=== PATIENT | female | born 1960 | race Caucasian/White ===

== ENCOUNTER 2018-05-31 03:43 | Emergency (ER) | END 2018-05-31 05:36 | disposition home or self-care (01) ==

== ENCOUNTER 2019-01-16 01:58 | Emergency (ER) | payer OTHER ==
[~2019-01-16] VITALS: Wt 75.6 kg
[~2019-01-16 01:58] MED LIST: AZIT250T PO; BEN50 PO; CYCL10TA7 PO; HYDR-1666; IBUP-1542 PO; IBUP800T48 PO; PROM6.25 PO; TRIA15CR55 TOP
[2019-01-16] MEDS ORDERED: SOD CHLORIDE 0.9% 1,000 ML IV STA (02:56)
[2019-01-16] MEDS ORDERED: LORAZEPAM 2 MG INJ IV ONE (03:00)
[2019-01-16] MEDS ORDERED: DICYCLOMINE 20 MG INJ IM ONE (03:00)
--- NOTE | 2019-01-16 03:33 | ERD ---
ER Documentation Chief Complaint Chief Complaint reacting to new antibiotics. sob, feels like throat is closing HPI 58-year-old female presents with multiple complaints. She states that she was recently in the [facility]. When she got back she had an episode of persistent nausea and mild epigastric discomfort. She was seen in urgent care during which time she was started on Augmentin and Flagyl. Since then she is having loose or watery stools. Patient describes no significant foul odor. This morning the patient states that she has not been sleeping very well and became very anxious. She had a globus sensation in the back of her throat and noted shortness of breath. Patient does note some significant anxiety recently. She has not been able to sleep. No fevers or chills over the past 24 hours. No rash or itchiness, no lip swelling or tongue swelling. ROS All systems reviewed and are negative except as per history of present illness. Medications Home Meds Active Scripts Ondansetron (Ondansetron Odt) 4 Mg Tab.rapdis, 4 MG PO Q6H PRN for NAUSEA AND/OR VOMITING, #20 TAB Prov:CLAIRE QUIGLEY MD 01/16/19 Dicyclomine HCl (Dicyclomine HCl) 10 Mg Capsule, 10 MG PO TID PRN for ABDOMINAL CRAMPING, #20 CAP Prov:CLAIRE QUIGLEY MD 01/16/19 Ibuprofen* (Motrin*) 800 Mg Tab, 800 MG PO Q8 for 10 Days, #30 TAB 0 Refills Prov:AMAN ULLOA PA-C 02/22/16 Reported Medications Amoxicillin/Potassium Clav (Amox-Clav 875-125 mg Tablet) 875-125 mg Tab, 1 TAB PO BID for 7 Days 01/16/19 Metronidazole (Flagyl) 500 Mg Tab, 500 MG PO BID for 7 Days 01/16/19 Discontinued Reported Medications Hydrocodone Bit/Acetaminophen (Vicodin 5/500 Tablet) 1 Tab Tablet 09/04/12 Discontinued Scripts Diphenhydramine Hcl* (Benadryl*) 50 Mg Cap, 50 MG PO Q6H PRN for ITCHING/RASH, #30 CAP Prov:JOSE D MARKHAM MD 05/31/18 Triamcinolone Acetonide* (Kenalog*) 0.1%-15GM Cr, 1 APPLIC TOP BID for itch on body for 7 Days, #1 TUB Prov:JOSE D MARKHAM MD 05/31/18 Cyclobenzaprine Hcl* (Cyclobenzaprine Hcl*) 10 Mg Tablet, 10 MG PO TID for 5 Days, #15 TAB 0 Refills Prov:AMAN ULLOA PA-C 02/22/16 Ibuprofen* (Motrin*) 600 Mg Tab, 600 MG PO Q6, #14 TAB Prov:TAMMY RIDDLE MD 11/17/15 Promethazine w/Codeine* (Phenergan w/Codeine* Syrup) 5 Ml Syrup, 5 ML PO Q4H PRN for COUGH for 5 Days, ML 6 ounces Prov:TAMMY RIDDLE MD 11/17/15 Azithromycin* (Zithromax*) 250 Mg Tablet, 250 MG PO .ZPACK DIRECTED, #6 TAB TAKE 500 MG (2 TABS) THE FIRST DAY THEN 250 MG (1 TAB) DAYS 2-5 Prov:TAMMY RIDDLE MD 11/17/15 Allergies Allergies: Coded Allergies: Sulfa (Sulfonamide Antibiotics) (Unverified Allergy, Intermediate, 01/16/19) PMhx/Soc History of Surgery: No Anesthesia Reaction: No Hx Neurological Disorder: No Hx Respiratory Disorders: No Hx Cardiac Disorders: No Hx Psychiatric Problems: No Hx Miscellaneous Medical Probl: Yes (Kidney Stones, High Cholesterol) Hx Alcohol Use: No Hx Substance Use: No Hx Tobacco Use: No Physical Exam Vitals Vital Signs Date Temp Pulse Resp B/P (MAP) Pulse Ox O2 O2 Flow FiO2 Time Delivery Rate 01/16/19 98.0 74 20 169/91 100 02:01 (117) Physical Exam General: Well developed, well nourished, no acute distress, slightly anxious Head: Normocephalic, atraumatic. Eyes: Pupils equally reactive, EOM intact ENT: Moist mucous membranes, no lip swelling or tongue swelling, tolerating secretions Neck: Supple, no lymphadenopathy Respiratory: Lungs clear bilaterally, no distress Cardiovascular: RRR, no murmurs, rubs, or gallops Abdominal: Soft, non-tender, non-distended, no peritoneal signs : Deferred MSK: No edema, no unilateral swelling, 5/5 strength Neurologic: Alert and oriented, moving all extremities, normal speech, no focal weakness, no cerebellar signs Skin: No rash Psych: Normal mood Result Diagram: 01/16/19 0328 01/16/19 0328 Results 24 hrs Laboratory Tests Test 01/16/19 03:28 White Blood Count 8.3 10^3/ul Red Blood Count 4.13 10^6/ul Hemoglobin 11.5 g/dl Hematocrit 37.0 % Mean Corpuscular Volume 89.6 fl Mean Corpuscular Hemoglobin 27.8 pg Mean Corpuscular Hemoglobin Concent 31.1 g/dl Red Cell Distribution Width 13.5 % Platelet Count 520 10^3/UL Mean Platelet Volume 9.0 fl Immature Granulocytes % 0.200 % Neutrophils % 63.0 % Lymphocytes % 27.3 % Monocytes % 7.7 % Eosinophils % 1.4 % Basophils % 0.4 % Nucleated Red Blood Cells % 0.0 /100WBC Immature Granulocytes # 0.020 10^3/ul Neutrophils # 5.3 10^3/ul Lymphocytes # 2.3 10^3/ul Monocytes # 0.6 10^3/ul Eosinophils # 0.1 10^3/ul Basophils # 0.0 10^3/ul Nucleated Red Blood Cells # 0.0 10^3/ul Sodium Level 143 mmol/L Potassium Level 3.9 mmol/L Chloride Level 105 mmol/L Carbon Dioxide Level 30 mmol/L Anion Gap 8 Blood Urea Nitrogen 12 mg/dl Creatinine 0.74 mg/dl Est Glomerular Filtrat Rate mL/min > 60 mL/min Glucose Level 102 mg/dl Calcium Level 9.5 mg/dl Total Bilirubin 0.2 mg/dl Direct Bilirubin 0.00 mg/dl Indirect Bilirubin 0.2 mg/dl Aspartate Amino Transf (AST/SGOT) 26 IU/L Alanine Aminotransferase (ALT/SGPT) 33 IU/L Alkaline Phosphatase 75 IU/L Total Protein 6.8 g/dl Albumin 3.7 g/dl Globulin 3.10 g/dl Albumin/Globulin Ratio 1.19 Lipase 712 U/L Current Medications Medications Dose Sig/Gladys Start Time Status Last (Trade) Ordered Route PRN Stop Time Admin Dose Reason Admin Sodium 1,000 ml @ Q1H STAT 01/16/19 DC 01/16/19 Chloride 1,000 mls/hr IV 02:56 01/16/19 03:30 03:55 Lorazepam 0.5 mg ONCE ONCE 01/16/19 DC 01/16/19 (Ativan) IV 03:00 01/16/19 03:31 03:01 Dicyclomine 10 mg ONCE ONCE 01/16/19 DC 01/16/19 HCl IM 03:00 01/16/19 03:31 (Bentyl) 03:01 Procedures/MDM EKG, MONITORS, & DIAGNOSTIC IMAGING: EKG: I reviewed and interpreted a 12-lead EKG. Rhythm: Normal sinus rhythm ST Changes: No contiguous ST segment elevations T waves: No contiguous T wave inversions Impression: No evidence of acute cardiac ischemia LAB INTERPRETATION: I reviewed the laboratory testing and it shows no evidence of acute process MEDICAL DECISION MAKING: The patient presents with shortness of breath and a globus sensation in the sett ing of diarrheal illness. I do not believe her clinical exam and history is suggestive of anaphylaxis or allergic reaction. No clinical findings to suggest this. The patient is a benign abdominal exam. She is taking antibiotics which may be leading to diarrheal illness but no signs or symptoms concerning for C. difficile colitis. Patient has a benign abdominal exam without concern for acute intra-abdominal process. Given the subacute nature I do not believe this is consistent with traveler's diarrhea therefore I do not feel antibiotics are absolutely necessary. The patient can safely discontinue the medications. Patient will benefit from anxiolysis, antispasmodic medication and Lipitor testing with IV fluids. Reassurance was provided. No indication at this time for CT imaging of the abdomen pelvis. ER COURSE: * The patient is feeling much better with interventions provided in the ER including fluids and pain medication. * Laboratory testing is reassuring. The patient is sleeping and resting comfortably. * At this point the patient can be safely discharged home. She was advised to discontinue antibiotics. Continue symptom control medications return for any worsening symptoms. CONSULTATION: None DISPOSITION PLAN: The patient does not have an identifiable emergent medical condition that warrants inpatient hospitalization at this time. The patient is deemed safe for discharge with outpatient follow-up. We discussed follow up with the patient's primary care doctor within 24 to 48 hours as needed. We also discussed return to the emergency room for worsening symptoms or worsening condition. Outpatient referral: None required Discharge Medications: Bentyl and Zofran Departure Diagnosis: Primary Impression: Dehydration Additional Impressions: Diarrhea Diarrhea type: unspecified type Qualified Codes: R19.7 - Diarrhea, unspecified Anxiety reaction Condition: CLAIRE Fernandez MD January 16, 2019 03:33
[2019-01-16] MEDS ORDERED: AMOX1TAB10 PO (04:22)
[2019-01-16] MEDS ORDERED: METR-121 PO (04:22)
[2019-01-16] MEDS ORDERED: DICY10CA40 PO (04:26)
[2019-01-16] MEDS ORDERED: ONDA4TAB14 PO (04:26)
[2019-01-16 04:59] VITALS: BP 112/72; PULSE 71; RESP 16
== END 2019-01-16 05:01 | disposition home or self-care (01) ==
LOC: E/R 01:58
DX: E86.0 Dehydration (principal); R19.7 Diarrhea, unspecified; F41.1 Generalized anxiety disorder
CPT/HCPCS: 36415; 80053; 83690; 85025; 93005; 96372; 96374; 99284; J0500; J2060; J7030